=== PATIENT | female | born 1945 | race Caucasian/White ===

== ENCOUNTER 2017-03-16 10:31 | Outpatient (CLI) | payer OTHER | END 2017-03-16 20:36 | disposition home or self-care (01) | LOC: SMA 10:31 | PROVIDERS: ATTEND Family Medicine | DX: Z12.31 Encounter for screening mammogram for malignant neoplasm of breast (principal) | CPT/HCPCS: G0202 ==

== ENCOUNTER 2018-03-30 10:40 | Outpatient (CLI) | payer OTHER | END 2018-03-30 19:27 | disposition home or self-care (01) | LOC: SMA 10:40 | PROVIDERS: ATTEND Family Medicine | DX: Z12.31 Encounter for screening mammogram for malignant neoplasm of breast (principal) | CPT/HCPCS: 77067 ==

== ENCOUNTER 2019-08-10 10:46 | Outpatient (CLI) | payer OTHER | END 2019-08-10 20:00 | disposition home or self-care (01) | LOC: SMA 10:46 | PROVIDERS: ATTEND Family Medicine | DX: Z12.31 Encounter for screening mammogram for malignant neoplasm of breast (principal) | CPT/HCPCS: 77067 ==

== ENCOUNTER 2020-12-15 10:50 | Outpatient (CLI) | payer OTHER | END 2020-12-15 20:48 | disposition home or self-care (01) | LOC: SMA 10:50 | PROVIDERS: ATTEND Family Medicine | DX: Z12.31 Encounter for screening mammogram for malignant neoplasm of breast (principal) | CPT/HCPCS: 77067 ==